=== PATIENT | female | born 1955 | race Caucasian/White ===

== ENCOUNTER → 2023-07-04 17:43 | Outpatient (REF) | payer MEDICARE, OTHER, SELFPAY | LOC: HWRAD 17:43 | PROVIDERS: ATTENDING PHYSICIAN Family Medicine | DX: Z20.828 Contact with and (suspected) exposure to other viral communicable diseases (principal); J01.90 Acute sinusitis, unspecified; R05.9 Cough, unspecified | CPT/HCPCS: 71046 ==

== ENCOUNTER → 2023-09-18 16:25 | Outpatient (REF) | payer MEDICARE, OTHER, SELFPAY | LOC: RAD 16:25 | PROVIDERS: ATTENDING PHYSICIAN Internal Medicine Critical Care Medicine; FAMILY PHYSICIAN Family Medicine | DX: R05.3 Chronic cough (principal) | CPT/HCPCS: 71250 ==

== ENCOUNTER → 2024-06-03 13:44 | Outpatient (REF) | payer MEDICARE, OTHER, SELFPAY | LOC: HWWDC 13:44 | PROVIDERS: ATTENDING PHYSICIAN Obstetrics & Gynecology; FAMILY PHYSICIAN Family Medicine | DX: Z12.31 Encounter for screening mammogram for malignant neoplasm of breast (principal) | CPT/HCPCS: 77063; 77067 ==

== ENCOUNTER 2024-08-22 19:35 | Emergency (ER) | payer MEDICARE, OTHER, SELFPAY ==
[2024-08-22 19:36] VITALS: BP 179/98
[2024-08-22 19:51] LABS: % Basophils 0.1 % (0-2); % Immature Granulocytes 1.6 % (0-0.5); % Lymphocytes 6.3 % (20.5-51.1); Absolute Immature Granulocytes 0.3 10^3/uL (0-0.05); Absolute Lymphocytes 1.4 10^3/uL (1.2-3.4); Absolute Monocytes 0.6 10^3/uL (0.1-0.6); Absolute Neutrophils 19.2 10^3/uL (1.4-6.5); Hemoglobin 12.2 g/dL (12.0-16.0); Mean Corp Hgb Conc. 33.9 g/dL (33.0-37.0); Mean Corpuscular Hgb 29.3 pg (27.0-31.0); Mean Corpuscular Volume 86.3 fL (81.0-99.0); Mean Platelet Volume 8.4 fL (7.4-10.4); Nucleated Red Blood Cells % 0 %; Platelet Count 466 10^3/uL (130-400); Red Blood Cell Count 4.17 10^6/uL (4.20-5.40); Red Cell Dist. Width 13.4 % (11.5-14.5); White Blood Cell Count 21.6 10^3/uL (4.8-10.8)
[2024-08-22 20:02] LABS: COVID-19 Antigen Negative (Negative)
[2024-08-22 20:08] LABS: ALT (SGPT) 185 U/L (0-35); AST (SGOT) 123 U/L (14-36); Albumin 3.8 g/dl (3.5-5.0); Alkaline Phosphatase 213 U/L (38-126); Blood Urea Nitrogen 15 mg/dl (7-17); Calcium 10.9 mg/dl (8.4-10.2); Carbon Dioxide 30 mmol/L (22-30); Chloride 92 mmol/L (98-107); Glucose 200 mg/dl (70-99); Potassium 5.9 mmol/L (3.5-5.1); Sodium 131 mmol/L (135-145); Total Bilirubin 0.7 mg/dl (0.2-1.3); Total Protein 6.8 g/dl (6.3-8.2); eGFR > 60.00
[2024-08-22 21:09] VITALS: BMI 31.6
[2024-08-22 21:12] VITALS: BP 151/99
--- NOTE | 2024-08-22 22:32 | ED.GENMED ---
History of Present Illness
General
Chief Complaint: Breathing Problem
Source: patient and spouse
Exam Limitations: none
Time Seen by Provider: 08/22/24 22:14
Nursing documentation reviewed up to this point in time: agreed with
History of Present Illness
History of Present Illness:
Pleasant 69-year-old female presents to the emergency department with 2 weeks of cough, intermittent fever, difficulty breathing. Patient states symptoms began 2 weeks ago. She developed a fever. Was seen by the PA at her primary care provider's
office and diagnosed with influenza. She was started on a Medrol Dosepak and Tessalon Perles. Symptoms persisted and patient went back to the primary care provider who started her on azithromycin and a prednisone taper. Patient is still having
difficulty breathing. She does have a history of asthma and has a ProAir inhaler which had . She also has a nebulizer at home but did not have any Nebules. She states that she had increased difficulty breathing today so she came into the
emergency department for evaluation. Patient has not had a fever for several days. She is still taking the steroid and finishing up the azithromycin.
Past History
Past History
ED Past Medical History: Asthma, HTN and Hypercholesterolemia
ED Past Surgical History: None
Social History
Tobacco: Non-smoker
Alcohol: None
Drug: None
Personal:
Living: with family
Employment: Employed
Family History
Family History: Other (Nonsignificant)
Review of Systems
Review of Systems
Allergies reviewed?: Yes
Other source history: family
All Other Systems: ROS reviewed and negative except as documented in HPI and ROS
Constitutional: Reports no symptoms
EENT: Reports no symptoms
Respiratory: Reports cough
Cardiac: Denies chest pain, palpitations or syncope
ABD/GI: Reports no symptoms
: Reports no symptoms
Musculoskeletal: Reports no symptoms
Skin: Reports no symptoms
Neurological: Reports no symptoms
Endocrine: Reports no symptoms
Hematologic/Lymphatic: Reports no symptoms
Psychiatric: Reports anxiety
Phy Exam
General Physical Exam
General Presentation: well appearing and mild distress
General age: appears stated age
General Skin: warm and dry
General Habitus: normal
General Mental: alert
General Hydration: appears well hydrated
ENT Exam
ENT Exam: EOMI, pharynx normal, neck supple and normocephalic
Eye Exam
Eye Exam: PERRL, cornea clear and conjunctiva normal
Cardiovascular Exam
Cardiovascular Exam: regular rate/rhythm, no edema, no murmur and normal peripheral pulses
Pulmonary Exam
Pulmonary Exam: no respiratory distress, chest non tender and generalized wheezing
Cough: coarse cough
Breath Sounds: Wheeze: generalized (Right greater than left)
Gastrointestinal Exam
Gastrointestinal Exam: normal bowel sounds, non tender, soft, no organomegaly, no pulsatile mass and non distended
Neurological Exam
Neurological Exam: alert, oriented x3, no motor deficits and speech normal
Musculoskeletal Exam
Musculoskeletal Exam: full ROM
Skin Exam
Skin Exam: warm/dry and other (Bruise to the right forearm. Full range of motion in the wrist)
Psychiatric Exam
Psychiatric Exam: normal mood/affect
Scores
Heart Failure Risk
Heart Failure Risk Score: Not Applicable
Course
Orders/Labs/Results
Orders:
Orders
08/22/24 19:41
Chest [CR Chest - 2 Views ] Urgent
Comment:
Reason For Exam: cough
08/22/24 19:42
COVID-19 Antigen Urgent
Source: Nasal Swab
Influenza A+B Rapid Molecular Urgent
JB Source: Nasal Swab
Specimen Description:
08/22/24 19:46
Complete Blood Count/With Diff Urgent
Comprehensive Metabolic Panel Urgent
08/22/24 22:31
Doxycycline [Vibramycin] 100 mg PO NOW STA
Ipratropium/Albuterol Sulfate [Duoneb] 3 ml INH R NOW ONE
Abnormal Lab Results
08/22/24
19:46
WBC 21.6 H 10^3/uL
(4.8-10.8)
RBC 4.17 L 10^6/uL
(4.20-5.40)
Hct 36.0 L %
(37.0-47.0)
Plt Count 466 H 10^3/uL
(130-400)
Abs Immat Gran (auto) 0.3 H 10^3/uL
(0-0.05)
Absolute Neuts (auto) 19.2 H 10^3/uL
(1.4-6.5)
Immature Gran % 1.6 H %
(0-0.5)
Neutrophils % 89.0 H %
(42.2-75.2)
Lymphocytes % 6.3 L %
(20.5-51.1)
Sodium 131 L mmol/L
(135-145)
Potassium 5.9 H mmol/L
(3.5-5.1)
Chloride 92 L mmol/L
(98-107)
Glucose 200 H mg/dl
(70-99)
Calcium 10.9 H mg/dl
(8.4-10.2)
AST 123 H U/L
(14-36)
ALT 185 H U/L
(0-35)
Alkaline Phosphatase 213 H U/L
(38-126)
08/22/24 19:46
08/22/24 19:46
Vital Signs
Initial and Last Documented VS:
Initial Vital Signs
Temp Pulse Resp BP Pulse Ox
97.8 F 94 18 179/98 98
08/22/24 19:36 08/22/24 19:36 08/22/24 19:36 08/22/24 19:36 08/22/24 19:36
Last Documented Vital Signs
Temp Pulse Resp BP Pulse Ox
98.3 F 93 24 151/99 98
08/22/24 21:09 08/22/24 23:45 08/22/24 23:45 08/22/24 21:12 08/22/24 22:45
*Pulse Oximetry
Patient hypoxic: no
*Critical Care Note
Total Time (30-74mins, 75-104mins- exclusive of procedures): Not Applicable
Update Note
Update Note:
Patient has had azithromycin. Since I feel there is infiltrate in the right lower lobe I do not feel azithromycin is adequate. Will be started on doxycycline.
21.6 white blood cell count likely due to patient's [id number] use of Medrol and prednisone
Patient's room air sat is 98% for the duration of my exam
After albuterol and ipratropium patient feeling better
Patient's potassium is slightly elevated. Given albuterol.
Patient will stop taking her women's supplementation which contains potassium
She will follow-up with her PCP for repeat blood work in 1 week
ED Attending Note
-
Portions of this chart may have been created with voice recognition software.� Occasional wrong word or��sound alike� substitutions may have occurred due to the inherent limitations of voice recognition software.
Discharge Plan
Departure
Patient Disposition: Home (Routine Discharge)
Date of Disposition: 08/22/24
Time of Disposition: 23:38
Patient with high blood pressure during this ER visit?: Yes
Condition: Good
Discharge Problem:
Pneumonia, Cough
Instructions: Pneumonia in adults - ED discharge instructions, Cough in adults - ED discharge instructions, BLOOD PRESSURE
Prescriptions:
New
albuterol sulfate 2.5 mg/0.5 mL solution for nebulization
5 mg inhalation Q6H PRN (Reason: shortness of breath or wheezing) Qty: 30 0RF
albuterol sulfate 90 mcg/actuation HFA aerosol inhaler
1 inh inhalation Q6H PRN (Reason: shortness of breath or wheezing) Qty: 8.5 1RF
doxycycline hyclate 100 mg capsule
100 mg PO BID Qty: 20 0RF
Referrals:
Mario Spicer MD [Family Provider] -
Activity Restrictions/Additional Instructions:
Your prescriptions were sent to the [facility] pharmacy
As discussed repeat your blood work in 1 week's time.
It was a pleasure meeting you and taking part in your care. We hope for your continued healing and wellness.
Please read discharge instructions in their entirety. However, they are for general education and may not describe your exact diagnosis at discharge. Information on your ER visit and medical conditions were discussed with you along with appropriate
follow up information...
If indicated, please take your medications as instructed and indicated on discharge paperwork.
Please schedule a follow up appointment as directed. Call to schedule an appointment
Please return to the emergency department with ANY change in, persisting, or worsening of symptoms. If any of your symptoms do not improve, or persist, or become more severe within 6-12 hours, please return to the emergency department for further
care.
Please return to the emergency department if you develop a headache, neck pain/stiffness, fever greater than 100.4F, chest pain, shortness of breath, persistent nausea, vomiting, slurred speech, difficulty walking, numbness/tingling, weakness, signs
of infection or any other symptoms that are worrisome to you.
If you have any questions or concerns please do not hesitate to call the Hospital at or E-mail me directly at [email or web address]
Interventions
Interventions:
*Risk Screen - Suicide Last Done: 08/22/24 19:36
*General Assessment Last Done: 08/22/24 19:36
*Neglect/Abuse Screening Last Done: 08/22/24 19:36
*ED- Fall Risk Assessment Last Done: 08/22/24 21:12
*ED COVID-19 Vaccine History Last Done: 08/22/24 19:36
*Nursing Disposition Last Done: 08/22/24 23:48
ED- Cardiac Assessment Last Done: 08/22/24 21:12
ED- Pulmonary Assessment Last Done: 08/22/24 21:12
Discharge Date and Time
Discharge Date/Time: 08/22/24 23:52
Print Language: [id number]
[2024-08-22] MEDS: VIBRAMYCIN 100 MG PO (22:37)
[2024-08-22] MEDS: DUONEB 3 ML INH (22:37)
== END 2024-08-22 23:52 | disposition home or self-care (01) ==
LOC: EMR 19:35
PROVIDERS: Emergency Medicine; EMERGENCY PHYSICIAN Student in an Organized Health Care Education/Training Program; FAMILY PHYSICIAN Family Medicine
DX: J18.9 Pneumonia, unspecified organism (principal); J45.909 Unspecified asthma, uncomplicated; I10 Essential (primary) hypertension; E78.00 Pure hypercholesterolemia, unspecified; Z11.52 Encounter for screening for COVID-19
CPT/HCPCS: 99284; 94640; 71046; 80053; 85025; 87502; 87811

== ENCOUNTER → 2024-09-24 10:54 | Outpatient (REF) | payer MEDICARE, OTHER, SELFPAY | LOC: HWRAD 10:54 | PROVIDERS: ATTENDING PHYSICIAN Family Medicine | DX: J18.9 Pneumonia, unspecified organism (principal); E87.5 Hyperkalemia | CPT/HCPCS: 71046 ==

== ENCOUNTER → 2025-04-06 09:19 | Outpatient (REF) | payer MEDICARE, OTHER, SELFPAY | LOC: RAD 09:19 | PROVIDERS: ATTENDING PHYSICIAN Physician Assistant Medical; FAMILY PHYSICIAN Family Medicine | DX: R10.32 Left lower quadrant pain (principal); K57.90 Diverticulosis of intestine, part unspecified, without perforation or abscess without bleeding | CPT/HCPCS: 74177; Q9967 ==